=== PATIENT | male | born 1950 | race Caucasian/White ===

== ENCOUNTER 2021-05-16 10:34 | Emergency (ER) | payer OTHER ==
[~2021-05-16] VITALS: Ht 175.3 cm; Wt 95.3 kg
--- NOTE | ~2021-05-16 | EMS ---
[address] [address] EMS Patient Care Report Name: NATALYA RODRIGUEZ Room #: [facility]..#: [id number] Admission: Attend Phys: Discharge: Date of : 48 Report #: [id number] THIS REPORT FOR: //name// Report Transmitted: 05/16/2021 10:24 EMS Care Summary [facility] MED-ACT Incident [id number] @ 05/16/2021 09:36 Incident Location [address] [place] [address] Patient PHILIP RODRIGUEZ Male, 70 Years 1950 Patient Address [address] [place] [address] Patient History Diabetes, Patient Allergies No known allergies, Patient Medications None Reported, Chief Complaint weakness Disposition Transported No Lights/[place] Dis[place] Reason Unconscious/Fainting Transported To [facility] Narrative Upon arrival pt was lying on floor, presented w/o distress. Pt stated he was lying on floor for 3 hrs and could not get up. Pt denied any medical [address] [address] EMS Patient Care Report Name: NATALYA RODRIGUEZ Room #: [facility].#: [id number] Admission: Attend Phys: Discharge: Date of : 48 Report #: [id number] complaints. Pt stated he went to the [facility] 4 days ago and he decided to leave the hospital w/o seen the doctor because the waiting time was so long. Pt seem to be weak and unable to walk around without assistance. Crew convinced pt to be transport to hospital for evaluation. Pt moved from chair into the stretcher by lift and then pt moved to the unit. In the unit, pt vitals were monitored and remained stable during transport. At the hospital, pt moved to his assigned bed by sheet and then pt care turned over AED nurse. Initial Vitals @10:20P: 95,SpO2: 94, @10:10P: 98,R: 18,BP: 128/77,Pain: 0/10,SpO2: 94, @10:02P: 98,R: 18,BP: 154/80,Pain: 0/10,GCS: 15,Temp: 98.7F,SpO2: 95,Revised Trauma: 12, Impression Generalized Weakness Timeline 09:34,Call Received 09:34,Psap Call 09:36,Dispatched 09:36,En Route 09:43,On Scene 09:48,At Patient 10:02,BP: 154/80 M,PULSE: 98,RR: 18 R,SPO2: 95 Ox,ETCO2: ,BG: ,PAIN: 0,GCS: 15, 10:06,Depart Scene 10:10,BP: 128/77 M,PULSE: 98,RR: 18 R,SPO2: 94 Ox,ETCO2: ,BG: ,PAIN: 0,GCS: , 10:20,BP: / M,PULSE: 95,RR: R,SPO2: 94 Ox,ETCO2: ,BG: ,PAIN: ,GCS: , 10:23,At Destination 10:43,Call Closed Disclaimer v1.1 Copyright 2020 [employer] This EMS Care Summary contains data elements from the applicable legal record (which may be displayed differently). It is designed to provide pertinent information for the following purposes: continuity of care, clinical quality, and state data reporting. The complete legal record is available to ED staff and administrators of the receiving hospital in [employer]'s Patient Tracker. All data is provided "as is."
[2021-05-16 11:20] LABS: ABSOLUTE NEUTROPHILS 5.5 thou/uL (1.4-8.2); BASOPHILS 0.5 % (0.0-2.0); EOSINOPHILS 1.3 % (0.0-3.0); HEMATOCRIT 42.4 % (42.0-52.0); LYMPHOCYTES 11.3 % (24.0-44.0); MCH 28.9 pg (26.0-34.0); MCHC 33.1 g/dL (28.0-37.0); MCV 87.5 fL (80.0-100.0); MONOCYTES 9.2 % (1.0-8.0); PLATELET COUNT 167 thou/uL (150-400); POLYS 77.7 % (36.0-66.0); RBC 4.84 mil/uL (4.50-6.00); RDW 13.1 % (10.5-14.5)
[2021-05-16 11:24] LABS: CALCIUM 8.7 mg/dL (8.5-10.1); CREATININE 0.9 mg/dL (0.7-1.3); POTASSIUM 3.1 mmol/L (3.5-5.1)
[2021-05-16 11:34] LABS: ALBUMIN 3.4 g/dL (3.4-5.0); DIRECT BILIRUBIN 0.2 mg/dL (<0.1-0.2); TOTAL BILIRUBIN 1.3 mg/dL (0.2-1.0); TOTAL PROTEIN 6.9 g/dL (6.4-8.2)
--- NOTE | 2021-05-16 13:25 | EKG ---
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: : 1950 Requested By: Malorie Manrique Order Number: [id number] MD: Dawood Burroughs Measurements Intervals [employer] Rate: 72 P: 54 [place]: 156 QRS: 0 QRSD: 153 T: 11 QT: 408 QTc: 447 Interpretive Statements Sinus rhythm Ventricular premature complex Right bundle branch block No previous ECG available for comparison Electronically Signed On 05-16-2021 13:25:22 CLINICAL PHARMACIST by Dawood Burroughs [email or web address] <ELECTRONICALLY SIGNED> By: Dawood Burroughs MD, [facility] 05/16/21 1325 1143 1143 Dawood Burroughs MD, FACC /EPI
[2021-05-16] MEDS ORDERED: CEPHALEXIN500 MG PO (15:12)
[2021-05-16] MEDS ORDERED: BACTRIM DS TAB1 EACH PO (15:12)
[2021-05-16 16:01] LABS: URINE BILIRUBIN NEGATIVE (Negative); URINE BLOOD NEGATIVE (Negative); URINE CLARITY CLEAR; URINE COLOR YELLOW; URINE GLUCOSE-RANDOM* 1+ (Negative); URINE KETONES NEGATIVE (Negative); URINE LEUKOCYTES-REFLEX NEGATIVE (Negative); URINE NITRITE-REFLEX NEGATIVE (Negative); URINE PROTEIN (DIPSTICK) NEGATIVE (Negative)
[2021-05-16 16:30] VITALS: BP 140/62
== END 2021-05-16 16:30 | disposition home or self-care (01) ==
LOC: ER 10:34
PROVIDERS: Emergency Medicine
DX: L03.116 Cellulitis of left lower limb (principal); R55 Syncope and collapse